=== PATIENT | male | born 1955 | race Caucasian/White ===

== ENCOUNTER 2018-09-14 11:16 | Inpatient (IN) | payer OTHER ==
[~2018-09-14] VITALS: Ht 180.3 cm; Wt 113.7 kg
--- NOTE | ~2018-09-14 | HC ---
[facility] [place] [address] CONSULTATION Name: DON FELIX Room #: 363-P ADM IN M.R.#: [id number] Admission: 09/14/18 Attend Phys: Franklin Hampton MD Discharge: Date of : 59 Report #: [id number] THIS REPORT FOR: //name// CC: Franklin Young TYPE OF REPORT: Inpatient consultation. PRIMARY CARE PHYSICIAN: Patrick Young M.D. HARVESTER OPERATOR: Torres Bradford M.D., F.A.C.C. CHIEF COMPLAINT: Chest pain and upper back pain. HISTORY OF PRESENT ILLNESS: The patient is a 63-year-old man with a history of coronary artery disease who had been working over the last week or so and had noticed with only minimal activity and upper back and scapular pain radiating around to his left arm. These are the exact same symptoms he had 8 years ago when he had his PCI. He has been a little bit more short of breath and according to his , is a little bit graving usually with physical activity. His symptoms in severity are only moderate but they as above were very similar to his previous instances. He denies associated shortness of breath, palpitations, orthopnea or PND. He has still been very active. 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 PAST MEDICAL HISTORY: He has a history of remote PCI in 2010. He had an exercise ECG only stress test a year ago, which was normal. He has borderline diabetes, hyperlipidemia and hypertension. ALLERGIES: He has allergies to OLMESARTAN and SUDAFED. HOME MEDICATIONS: Include amlodipine 10 mg daily, Zyrtec p.r.n., atorvastatin 40 mg, nitroglycerin p.r.n., aspirin and Micardis 80 mg p.o. b.i.d. PAST SURGICAL HISTORY: Prior hernia repair. SOCIAL HISTORY: He is . He used to smoke. REVIEW OF SYSTEMS: PULMONARY: No wheezing or cough. GENERAL: No fevers or chills. SKIN: No rashes. [facility] [address] [place] [address] CONSULTATION Name: DON FELIX Room #: 363-P [facility] IN M.R.#: [id number] Admission: 09/14/18 Attend Phys: Franklin Hampton MD Discharge: Date of : 59 Report #: [id number] CARDIOVASCULAR: Minimal chest discomfort. No dyspnea. No orthopnea. No PND. No palpitations. GENITOURINARY: No dysuria or hematuria. PHYSICAL EXAMINATION: VITAL SIGNS: Blood pressure is 139/89, pulse is 78 and O2 sats 96%. GENERAL: This is a pleasant middle-aged male, alert and oriented, no apparent distress. NECK: Supple. No jugular venous distention. CARDIOVASCULAR: Regular. There is no murmur or S3. LUNGS: Clear to auscultation. ABDOMEN: Nontender. EXTREMITIES: There is no peripheral edema. RADIOLOGICAL DATA: Electrocardiogram shows sinus rhythm and normal ST segments. Chest x-ray shows no acute cardiopulmonary abnormality. LABORATORY DATA: Troponin I is 0.06 x 3 sets. Hemoglobin 13.5; white blood count 7.8 and platelet counts are 406,000. Sodium is 140, potassium is 4.2, chloride is 103, BUN is 22 and creatinine is 1.2. NT-pro-BNP 55. IMPRESSION: 1. Unstable angina. This patient has the recent onset of his typical angina type symptoms with physical activity, relieved with rest. His ECG did not show any dynamic abnormalities and he has ruled out for a myocardial infarction, but I feel that his symptoms are typical and therefore I proceed directly with a cardiac catheterization. 2. Hypertension. Continue present medical therapy. 3. Hyperlipidemia. His lipids are pending. His target LDL is under 70. 4. Borderline diabetes. At this point in time, we will proceed with cardiac catheterization revascularization based on findings. By: 0838 [id number] Norman Diaz MD, FACC /nt
[~2018-09-14 11:16] MED LIST: ACETAMINOPHEN325 M1 PO; ALEVE220 MG PO; ASPIRIN EC81 M1 PO; DIOVAN320 MG PO; EFFIENT10 MG PO; LIPITOR20 MG PO; LIPITOR40 MG PO; MICARDIS40 MG PO; NITROSTAT0.4 MG SL
[2018-09-14 11:17] VITALS: BP 159/88
[2018-09-14] MEDS ORDERED: MICARDIS 80 MG80 MG PO (11:31)
[2018-09-14] MEDS ORDERED: AMLODIPINE BESY10 MG PO (11:32)
[2018-09-14] MEDS ORDERED: NORVASC5 MG PO (11:48)
[2018-09-14 11:51] LABS: ABSOLUTE NEUTROPHILS 5.4 thou/uL (1.4-8.2); BASOPHILS 1.1 % (0.0-2.0); EOSINOPHILS 1.5 % (0.0-3.0); HEMATOCRIT 42.3 % (42.0-52.0); HEMOGLOBIN 14.8 gm/dL (14.0-18.0); LYMPHOCYTES 19.7 % (24.0-44.0); MCH 30.8 pg (26.0-34.0); MCV 88.1 fL (80.0-100.0); MONOCYTES 6.9 % (1.0-8.0); PLATELET COUNT 435 thou/uL (150-400); POLYS 70.8 % (36.0-66.0); WBC 7.6 thou/uL (4.0-11.0)
[2018-09-14 12:03] LABS: ANION GAP 7 mmol/L (7-16); BUN 17 mg/dL (7-18); CALCIUM 9.2 mg/dL (8.5-10.1); CHLORIDE 102 mmol/L (98-107); CO2 27 mmol/L (21-32); CREATININE 1.1 mg/dL (0.7-1.3); GLUCOSE 121 mg/dL (74-106); POTASSIUM 4.1 mmol/L (3.5-5.1); SODIUM 136 mmol/L (136-145)
[2018-09-14 12:11] LABS: TROPONIN-I <0.06 ng/mL (<0.06)
[2018-09-14] MEDS ORDERED: ZYRTEC10 M4 PO (13:27)
[2018-09-14 13:38] VITALS: BP 135/78
--- NOTE | 2018-09-14 13:39 | EKG ---
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
[2018-09-14 14:13] VITALS: BP 151/85
[2018-09-14 14:27] VITALS: BP 147/103
[2018-09-14 15:45] VITALS: BP 133/67
--- NOTE | 2018-09-14 16:55 | NUR ---
PATIENT ADMIT TO UNIT FROM ER AT 1430. UP AD DONALD. DENIES CHEST PAIN. C/0 NECK PAIN 10/11. NO N/V. WILL KEEP MONITOR.
[2018-09-14 21:00] VITALS: BP 116/78
[2018-09-15] VITALS (14 sets, daily range): BP systolic 116–139; BP diastolic 64–89
[2018-09-15 04:29] LABS: HEMATOCRIT 40.7 % (42.0-52.0); HEMOGLOBIN 13.5 gm/dL (14.0-18.0); MCH 29.7 pg (26.0-34.0); MCHC 33.2 g/dL (28.0-37.0); MCV 89.6 fL (80.0-100.0); RBC 4.54 mil/uL (4.50-6.00); RDW 12.9 % (10.5-14.5); WBC 7.8 thou/uL (4.0-11.0)
--- NOTE | 2018-09-15 04:50 | NUR ---
Ptient progressing well towards outcome goals. Vital signs and rhythm stable. No chest pain. Troponin x 3 negative. One more pending this morning. Upp adlib within room without difficulty. Slept well.
[2018-09-15 05:23] LABS: CALCIUM 8.8 mg/dL (8.5-10.1); CREATININE 1.2 mg/dL (0.7-1.3); POTASSIUM 4.2 mmol/L (3.5-5.1); TOTAL BILIRUBIN 0.3 mg/dL (<0.1-1.0); TOTAL PROTEIN 6.9 g/dL (6.4-8.2)
[2018-09-15 05:24] LABS: ALBUMIN 3.4 g/dL (3.4-5.0)
[2018-09-15 09:09] LABS: CHOLESTEROL 184 mg/dL (<200); HDL CHOLESTEROL 36 mg/dL (>40); LDL CHOLESTEROL 109 mg/dL (<100); TC:HDL 5.1 Ratio (Not establshd); TRIGLYCERIDE 199 mg/dL (<150); VLDL 40 mg/dL (<40)
--- NOTE | 2018-09-15 09:11 | NUR ---
care of pt assumed this am @ 0700. pt noted to be up walking about in room. denies soa, pain or n/v/d at this time. pt looking forward to seeing the doctors this am.
--- NOTE | 2018-09-15 12:34 | CATHLAB ---
[facility] [address] [place] [address] INVASIVE PROCEDURE REPORT Name: DON FELIX Room #: 201-P ADM IN M.R.#: [id number] Admission: 09/14/18 Attend Phys: Franklin Hampton MD Discharge: Date of : 59 Date of Service: 09/15/18 1234 Report #: [id number] THIS REPORT FOR: //name// APPROVED REPORT Study performed: 09/15/2018 09:17:07 Patient Details Patient Status: In-Patient Room #: 201 The patient is a 63 year-old male Event Personnel Jw Donovan Hot Top Liner, Timothy Palumbo RN RN, Penelope Darling RTR, SEPARATING MACHINE OPERATOR Monitor, Torres Conley Procedures Performed Art Access - R femoral artery* Left Heart Cath w/or w/o Coronaries [id number] [facility], [address] Initial Mod Sed Same Phys/QHP Gr5y [id number] Hemostasis with Manual pressure Indication Dyspnea, Unstable angina , Chest pain Risk Factors Hypercholesterolemia, Coronary Artery DiseaseHypertension Procedure Narrative The Right Groin^ was infiltrated with 1% Lidocaine subcutaneous anesthesia. A PINNACLE 4FR Sheath #[id number] sheath was inserted into the RFA^. Coronary angiography was performed using coronary diagnostic catheters. The right coronary system was accessed and visualized with a 4FR JR 4 #[id number] catheter. The left coronary system was accessed and visualized with a 4FR JL4 #[id number] catheter. The left ventricle was accessed and visualized with a 4FR PIGTAIL 145 ANGLED #[id number] catheter. Left ventricular/Aortic Valve gradient assessed via catheter pullback. Left ventriculogram was performed in 30 degree projection. Hemostasis was obtained with manual pressure following sheath removal without any complications. The patient tolerated the procedure well and there were no complications associated with the procedure. There was no hematoma. Intraoperative Conscious Sedation Sedation start time: 09:20 Case end Time: 09:50 Fentanyl 50 mcg [address] [facility] [address] [place] [address] INVASIVE PROCEDURE REPORT Name: DON FELIX Room #: 201-P [facility] IN M.R.#: [id number] Admission: 09/14/18 Attend Phys: Franklin Hampton MD Discharge: Date of : 59 Date of Service: 09/15/18 1234 Report #: [id number] Fluoro Time: 2.19 minutes Dose: DAP 5300.80 cGycm2 719 mGy Contrast Type and Amount: Omnipaque 120 ml Coronary Angiography The patient's coronary anatomy is right dominant. Diagnostic Cath Left Main This is a large caliber vessel with a severe stenosis at the distal segment, at the bifurcation of the left circumflex artery and LAD. Approximately 80% stenotic. LAD There are calcifications in proximal and mid segments. There is mild diffuse disease in the mid segment, 30%. The LAD traverses the anterior wall and wraps around the apex. Diagonal 1 This is a patent vessel, with mild disease proximally. Circumflex There is an ostial stenosis, 70%. OM1 This is a moderate size caliber vessel, traveling down the lateral wall, supplying several branches. There are no flow-limiting lesions in the OM vessel. Right Coronary This is a dominant vessel with a patent stent in the midsegment, with mild restenosis, 30%. R PDA This is a patent vessel, with no flow-limiting lesions. RPLV This is a patent vessel, with no flow-limiting lesions. Left Ventriculography The left ventricle is normal in size with normal contractility. The left ventricular ejection fraction is estimated to be 60%. Hemodynamics The aortic pressure is 124/63 mmHg with a mean of 90 mmHg. The left ventricular pressure is 141/2 mmHg with a mean of mmHg. The left ventricular end diastolic pressure is 21 mmHg. Conclusion 1. Severe complex stenosis at the distal left main site, 80%. 2. Severe ostial left circumflex stenosis. 3. Patent RCA stent with mild restenosis. [facility] [address] [place] [address] INVASIVE PROCEDURE REPORT Name: DON FELIX Room #: 201-P [facility] IN M.R.#: [id number] Admission: 09/14/18 Attend Phys: Franklin Hampton MD Discharge: Date of : 59 Date of Service: 09/15/18 1234 Report #: [id number] 4. Normal LV systolic function. 5. Recommend CV surgical consultation. <ELECTRONICALLY SIGNED> By: Jw Donovan MD 09/15/18 1234 1234 1234 Jw Donovan MD /INF
[2018-09-15 13:18] LABS: APTT 28.1 Seconds (24.5-32.8); PROTIME 10.8 Seconds (9.3-11.4)
[2018-09-15 13:37] LABS: URINE BILIRUBIN NEGATIVE (Negative); URINE BLOOD NEGATIVE (Negative); URINE CLARITY CLEAR; URINE COLOR YELLOW; URINE GLUCOSE-RANDOM* NEGATIVE (Negative); URINE KETONES NEGATIVE (Negative); URINE LEUKOCYTES-REFLEX NEGATIVE (Negative); URINE NITRITE-REFLEX NEGATIVE (Negative); URINE PROTEIN (DIPSTICK) NEGATIVE (Negative); URINE SPECIFIC GRAVITY <= 1.005 (1.005-1.035); URINE UROBILINOGEN 0.2 E.U./dl (0.2-1.0)
--- NOTE | 2018-09-15 13:53 | NUR ---
PT ARRIVED TO UNIT AT APPROX 1005 FROM DIRECTOR HOSPICE OPERATIONS WITH BELONGINGS AND . PT AOX4, VSS, RIGHT GROIN SITE CDI, NO HEMATOMA, TELE STRIP PRINTED AND DOCUMENTED. NO C/O PAIN. WILL ACKNOWLEDGE AND IMPLEMENT ORDERS.
--- NOTE | 2018-09-15 14:14 | 2DMMODE ---
[facility] [address] [place] [address] 2 D/M-MODE ECHOCARDIOGRAM Name: DON FELIX Room #: 201-P ADM IN M.R.#: [id number] Admission: 09/14/18 Attend Phys: Franklin Hampton MD Discharge: Date of : 59 Date of Service: 09/15/18 1414 Report #: [id number] THIS REPORT FOR: //name// APPROVED REPORT Study performed: 09/15/2018 13:20:32 EXAM: Comprehensive 2D, Doppler, and color-flow Echocardiogram Patient Location: Bedside Room #: 201 Status: routine BSA: 2.33 HR: 62 bpm BP: 127/71 mmHg Rhythm: NSR Other Information Study Quality: Adequate Indications CAD Chest Pain Preop CABG 2D Dimensions RVDd: 42.24 mm IVSd: 11.28 (7-11mm) LVOT Diam: 24.54 (18-24mm) LVDd: 48.94 mm PWd: 10.83 (7-11mm) Ascending Ao: 31.01 (22-36mm) LVDs: 32.59 (25-40mm) Aortic Root: 30.87 mm IVC: 21.00 mm Volumes Left Atrial Volume (Systole) Single Plane 4CH: 48.10 mL Single Plane 2CH: 50.93 mL LA ESV Index: 24.00 mL/m2 Aortic Valve AoV Peak Marco.: 1.47 m/s AO Peak Gr.: 8.59 mmHg LVOT Max P.50 mmHg LVOT Max V: 0.94 m/s KLAUDIA Vmax: 3.02 cm2 Mitral Valve E/A Ratio: 0.7 [facility] [address] [place] [address] 2 D/M-MODE ECHOCARDIOGRAM Name: DON FELIX Room #: 201-P [facility] IN M.R.#: [id number] Admission: 09/14/18 Attend Phys: Franklin Hampton MD Discharge: Date of : 59 Date of Service: 09/15/18 1414 Report #: [id number] MV Decel. Time: 286.48 ms MV E Max Marco.: 0.57 m/s MV A Marco.: 0.77 m/s MV PHT: 83.08 ms IVRT: 110.73 ms Pulmonary Valve PV Peak Marco.: 1.19 m/s PV Peak Gr.: 5.66 mmHg Pulmonary Vein P Vein S: 0.51 m/s P Vein A: 0.30 m/s P Vein D: 0.33 m/s P Vein A Dur.: 106.1 msec P Vein S/D Ratio: 1.55 Tricuspid Valve TR Peak Marco.: 2.25 m/s TR Peak Gr.: 20.29 mmHg PA Pressure: 30.00 mmHg Left Ventricle The left ventricle is normal size. There is normal LV segmental wall motion. There is normal left ventricular wall thickness. Left ventricular systolic function is normal. The left ventricular ejection fraction is within the normal range. LVEF is 55-60%. Grade I - abnormal relaxation pattern. Right Ventricle The right ventricle is normal size. The right ventricular systolic function is normal. Atria The left atrium size is normal. The right atrium size is normal. Aortic Valve The aortic valve is normal in structure. No aortic regurgitation is present. There is no aortic valvular stenosis. Mitral Valve The mitral valve is normal in structure. There is no mitral valve regurgitation noted. No evidence of mitral valve stenosis. Tricuspid Valve The tricuspid valve is normal in structure. There is trace tricuspid regurgitation. Estimated PAP 30 mmHg. There is no pulmonary hypertension. [address] [address] 2 D/M-MODE ECHOCARDIOGRAM Name: DON FELIX Room #: 201-P [facility] IN M.R.#: [id number] Admission: 09/14/18 Attend Phys: Franklin Hampton MD Discharge: Date of : 59 Date of Service: 09/15/18 1414 Report #: [id number] Pulmonic Valve The pulmonary valve is normal in structure. There is no pulmonic valvular regurgitation. Great Vessels The aortic root is normal in size. IVC is dilated and collapses >50% with inspiration. Pericardium There is no pericardial effusion. <Conclusion> LVEF is 55-60%. Grade I - abnormal relaxation pattern. There is no aortic valvular stenosis. No aortic regurgitation is present. No evidence of mitral valve stenosis. There is no mitral valve regurgitation noted. <ELECTRONICALLY SIGNED> By: Norman Diaz MD, FACC 09/15/18 1414 141 141 Norman Diaz MD, FACC /INF
--- NOTE | 2018-09-15 17:07 | NUR ---
PT AOX4, VSS, NO C/O PAIN, NO S/SX OF CARDIAC OR RESP DISTRESS. DENIES CHEST PAIN. MEDS GIVEN PER MAR. SPOUSE AT BEDSIDE WITH PT. POST CATH VITALS CHARTED, RIGHT GROIN SITE CDI, NO HEMATOMA. PT OFF BEDREST SINCE APROX 1300, TOLERATING WELL. PLAN IS FOR CABG IN AM, PT AND FAMILY UPDATED AND INFORMED, COMMUNICATES UNDERSTANDING. WILL CONTINUE TO MONITOR AND FOLLOW POC.
[2018-09-15 23:10] LABS: GLYCOHEMOGLOBIN (HGB A1C) 6.2 % (4.8-5.6)
[2018-09-16] VITALS (24 sets, daily range): BP systolic 92–147; BP diastolic 47–79
[2018-09-16 04:11] LABS: CREATININE 1.2 mg/dL (0.7-1.3); POTASSIUM 4.1 mmol/L (3.5-5.1)
--- NOTE | 2018-09-16 05:22 | NUR ---
ASSUME CARE 1900. PT/VITALS STABLE. DENIES ANY PAIN. UP AD DONALD. SR ON MONITOR. ASSESSMENT CHARTED. PROGRESSING WELL WITH POC. PLAN IS CABG TODAY. WILL CONTINUE TO MONITOR AND FOLLOW WITH POC
[2018-09-16 05:49] LABS: HEMOGLOBIN 13.8 gm/dL (14.0-18.0); MCHC 33.7 g/dL (28.0-37.0); MCV 89.3 fL (80.0-100.0); RBC 4.59 mil/uL (4.50-6.00); RDW 13.2 % (10.5-14.5); WBC 8.6 thou/uL (4.0-11.0)
[2018-09-16 14:13] LABS: POC BE -1 mmol/L (-2.0 to +3.0); POC CA IONIZED 4.5 mg/dL (4.5-5.3); POC GLUCOSE 198 mg/dL (70-99); POC HCO3 24.9 mmol/L (22.0-26.0); POC HEMOGLOBIN 13.3 g/dL (14.0-18.0); POC POTASSIUM 4.3 mmol/L (3.5-5.1); POC SODIUM 136 mmol/L (136-145); POC pCO2 47.7 mmHg (35.0-45.0); POC pH 7.326 (7.360-7.450)
[2018-09-16 14:13] LABS: POC BE -2 mmol/L (-2.0 to +3.0); POC CA IONIZED 3.9 mg/dL (4.5-5.3); POC GLUCOSE 224 mg/dL (70-99); POC HCO3 24.1 mmol/L (22.0-26.0); POC HEMOGLOBIN 11.2 g/dL (14.0-18.0); POC POTASSIUM 4.5 mmol/L (3.5-5.1); POC SODIUM 134 mmol/L (136-145); POC pCO2 45.1 mmHg (35.0-45.0); POC pH 7.335 (7.360-7.450)
[2018-09-16 14:13] LABS: POC BE 2 mmol/L (-2.0 to +3.0); POC CA IONIZED 4.7 mg/dL (4.5-5.3); POC GLUCOSE 129 mg/dL (70-99); POC HCO3 27.1 mmol/L (22.0-26.0); POC HEMOGLOBIN 13.6 g/dL (14.0-18.0); POC POTASSIUM 4.5 mmol/L (3.5-5.1); POC SODIUM 138 mmol/L (136-145); POC pCO2 46.7 mmHg (35.0-45.0); POC pH 7.372 (7.360-7.450)
[2018-09-16 14:14] LABS: POC BE -3 mmol/L (-2.0 to +3.0); POC CA IONIZED 4.1 mg/dL (4.5-5.3); POC GLUCOSE 275 mg/dL (70-99); POC HEMOGLOBIN 11.2 g/dL (14.0-18.0); POC POTASSIUM 4.7 mmol/L (3.5-5.1); POC SODIUM 133 mmol/L (136-145); POC pCO2 45.4 mmHg (35.0-45.0); POC pH 7.313 (7.360-7.450)
[2018-09-16 14:14] LABS: POC BE -4 mmol/L (-2.0 to +3.0); POC GLUCOSE 267 mg/dL (70-99); POC HCO3 22.8 mmol/L (22.0-26.0); POC HEMOGLOBIN 11.2 g/dL (14.0-18.0); POC POTASSIUM 3.7 mmol/L (3.5-5.1); POC SODIUM 135 mmol/L (136-145); POC pCO2 48.2 mmHg (35.0-45.0); POC pH 7.283 (7.360-7.450)
--- NOTE | 2018-09-16 14:40 | NUR ---
PT ARRIVED FROM OR WITH ANES. AND OTHER OR PERSONELS AT APPROXIMATELY 1410. DR. DE LA TORRE AND CHIDI BENITO WERE AT THE BEDSIDE SOON AFTER ARRIVAL. PT SEDATED AND PLACED ON THE VENT, VENT ORDERS COMMUNICATED TO RT, PRIOR TO PT ARRIVAL. ON PROPOFOL AT 40 MCGS ON ARRIVAL. PACEMAKER WIRES IN PLACE, PACEMAKE ATTACH BUT TURN OFF. SATS ABOVE 90% ON VENT. CHEST TUBES, INPLACE AND DRAINING, CONNECTED TO SUCTION. ON ARRIVAL, PT WAS ON INSULIN GTT AT 6 UNITS/HR ON ARRIVAL. DR. TALAVERA ADVANCED SWAN CATH PER DR. DE LA TORRE'S ORDERS. ALL HEMODYNAMIC MONITORS ARE WITHIN NORMAL LIMITS AT THIS TIME. WILL CONTINUE TO MONITOR PT.
[2018-09-16 14:46] LABS: HEMATOCRIT 37.6 % (42.0-52.0); HEMOGLOBIN 12.5 gm/dL (14.0-18.0); MCH 29.6 pg (26.0-34.0); MCHC 33.2 g/dL (28.0-37.0); MCV 89.2 fL (80.0-100.0); RBC 4.21 mil/uL (4.50-6.00)
[2018-09-16 14:51] LABS: CALCIUM 8.8 mg/dL (8.5-10.1); CREATININE 1.6 mg/dL (0.7-1.3); POTASSIUM 4.1 mmol/L (3.5-5.1); WBC 29.1 thou/uL (4.0-11.0)
[2018-09-16 14:52] LABS: BE(vivo) -8.8 mmol/L (-2 to +3); HCO3 19.5 mmol/L (22.0-26.0); PCO2 51.6 mmHg (35.0-45.0); PO2 126.1 mmHg (80.0-100.0); pH 7.195 (7.360-7.450); sO2 97.7 % (92.0-98.0)
[2018-09-16 15:05] LABS: APTT 25.3 Seconds (24.5-32.8); INR 1.1; PROTIME 11.8 Seconds (9.3-11.4)
[2018-09-16 15:08] LABS: BE(vivo) -8.9 mmol/L (-2 to +3); HCO3 19.8 mmol/L (22.0-26.0); PCO2 VENOUS 54.8 mmHg (41.0-51.0); PO2 VENOUS 54.2 mmHg (35.0-45.0)
--- NOTE | 2018-09-16 15:30 | HC ---
[facility] [place] [address] CONSULTATION Name: DON FELIX Room #: 242-P [facility] IN M.R.#: [id number] Admission: 09/14/18 Attend Phys: Franklin Hampton MD Discharge: Date of : 59 Report #: [id number] THIS REPORT FOR: //name// CC: Franklin Young DATE OF SERVICE: 09/15/2018 HISTORY OF PRESENT ILLNESS: We were asked to see the patient in evaluation of coronary artery disease. The patient was admitted with intermittent chest pain of new onset. The patient has a history of cardiac stent placement approximately 8 years ago and says that the symptoms are similar. Symptoms consist of intermittent posterior neck and back pain, shortness of breath, nausea and vomiting with onset approximately 4 days prior to yesterday's admission. reports that the patient looks anders after any period of exertion. The patient states that symptoms are severely increased after shoveling snow. There is a history of previous stent placement in the right coronary artery 04/11. PAST MEDICAL HISTORY: Includes hypertension, hypercholesterolemia, arthritis and back problems. MEDICATIONS AT HOME: Amlodipine, atorvastatin, aspirin, Micardis. ALLERGIES: PSEUDOEPHEDRINE, causes hypertension. FAMILY HISTORY: Positive for coronary disease in mother who had bypass surgery. REVIEW OF SYSTEMS: CONSTITUTIONAL: Negative for fever or chills. EYES: Negative for eye pain or visual change. HEENT: Negative for rhinorrhea or sore throat. RESPIRATORY: Negative for cough or sputum production. We do note some shortness of breath with angina. CARDIOVASCULAR: As mentioned pain in the upper chest, back area, upper thorax posteriorly. GASTROINTESTINAL: Some nausea with the angina, but no vomiting or blood. GENITOURINARY: No burning, frequency, or blood. MUSCULOSKELETAL: Some chronic back discomfort, but no other bone or joint symptoms. SKIN: No rash or infection. NEUROLOGIC: No motor or sensory dysfunction. PHYSICAL EXAMINATION: [facility] [address] [place] [address] CONSULTATION Name: DON FELIX Room #: 242-P [facility] IN ..#: [id number] Admission: 09/14/18 Attend Phys: Franklin Hampton MD Discharge: Date of : 59 Report #: [id number] VITAL SIGNS: Temperature 97.4, heart rate 78, respiratory rate 16, blood pressure 139/89, O2 sat 96% on room air. HEENT: No scleral icterus, no arcus. NECK: No mass, no bruit. CHEST: Clear. HEART: Rhythm regular. ABDOMEN: Soft. EXTREMITIES: No clubbing, cyanosis or edema. MUSCULOSKELETAL: No bone or joint dissymmetry or deformation. NEUROLOGIC: No motor or sensory loss or dysfunction. SKIN: No rash or infection. We note cardiac catheterization done today by Dr. Donovan for Dr. Bradford, shows critical left main stenosis. I have discussed the risks and details of bypass surgery. These include but are not limited to bleeding, infection, anesthesia risks, heart problems, stroke and . Options and alternatives were reviewed. The patient and family understand all this and wished to proceed. We plan surgery for tomorrow morning. Thank you for the consult. <ELECTRONICALLY SIGNED> By: Gene Garrett MD 09/16/18 1530 1600 1837 Gene Garrett MD /nt
--- NOTE | 2018-09-16 17:02 | EKG ---
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 WALDRON : 1955 Requested By: Gene Garrett Order Number: [id number] MD: John Beltran Measurements Intervals [place] Rate: 90 P: 52 CA: 221 QRS: 33 QRSD: 88 T: 23 QT: 404 QTc: 495 Interpretive Statements Sinus rhythm Prolonged CA interval Borderline prolonged QT interval Compared to ECG 09/14/2018 11:36:19 First degree AV block now present Electronically Signed On 09-16-2018 17:01:44 COMFORT STATION ATTENDANT by John Beltran [email or web address] <ELECTRONICALLY SIGNED> By: John Beltran MD, [facility] 09/16/18 1701 1619 161 John Beltran MD, FACC /EPI
[2018-09-16 17:30] LABS: BE(vivo) -8.6 mmol/L (-2 to +3); HCO3 17.1 mmol/L (22.0-26.0); PCO2 36.3 mmHg (35.0-45.0); PO2 92.9 mmHg (80.0-100.0); pH 7.291 (7.360-7.450); sO2 96.4 % (92.0-98.0)
[2018-09-16 19:12] LABS: BE(vivo) -7.1 mmol/L (-2 to +3); HCO3 18.4 mmol/L (22.0-26.0); PCO2 36.8 mmHg (35.0-45.0); PO2 110.3 mmHg (80.0-100.0); sO2 97.7 % (92.0-98.0)
[2018-09-16 19:13] LABS: pH 7.316 (7.360-7.450)
[2018-09-16 19:45] LABS: CALCIUM 8.7 mg/dL (8.5-10.1); MAGNESIUM 2.5 mg/dL (1.8-2.4); POTASSIUM 4.1 mmol/L (3.5-5.1)
--- NOTE | 2018-09-16 19:58 | NUR ---
PT CURRENTLY AO, FOLLOW COMMANDS, ON LIGHT SEDATION. PRECEDEX AT 0.4 MCGS. C/O MINIMAL PAIN. LEVOPHED STARTED AT APPROXIMATE 1830, FOR BP SUPPORT. SR ON MONITOR. CPAP TRIAL PERFORMED ON PATIENT, AWAIT ABGS. INSULIN GTT ONGOING AT 4 UNITS/HR. CHEST TUBES PATENT, AND OUTPUT NOTED HOURLY. HEMODYNAMICALLY BEING MONITOR CURRENTLY. URINE OUTPUT NOTED. NO COMPLAINS PRESENTLY. WILL CONTINUE TO MONITOR PT.
[2018-09-16 20:02] LABS: BE(vivo) -8.7 mmol/L (-2 to +3); HCO3 16.2 mmol/L (22.0-26.0); PCO2 31.7 mmHg (35.0-45.0); PO2 91.5 mmHg (80.0-100.0); pH 7.325 (7.360-7.450); sO2 96.6 % (92.0-98.0)
[2018-09-16 22:19] LABS: HCO3 20.8 mmol/L (22.0-26.0); PCO2 36.9 mmHg (35.0-45.0); PO2 79.8 mmHg (80.0-100.0); pH 7.368 (7.360-7.450); sO2 95.5 % (92.0-98.0)
--- NOTE | 2018-09-16 23:53 | NUR ---
PT AOX4 AT THIS MOMENT. FOLLOWS COMMANDS. MOVES ALL EXTREMETIES. C/O PAIN, FENTANYL GIVEN FOR PAIN MANAGEMENT.OFF LEVOPHED, BP STABLE. ON INSULIN, TITRATED PER BS. CHEST TUBES IN PLACE, AND DRAINING. PT CURRENTLY BEING HEMODYNAMICALLY BEING MONITORED. MIDSTERNAL DRESSING C/D/I. LEFT LEG DRESSING C/D/I. PACER WIRES IN PLACE. WILL CONTINUE TO MONITOR.
[2018-09-17 04:11] VITALS: BP 135/71
[2018-09-17 04:58] LABS: ABSOLUTE NEUTROPHILS 13.6 thou/uL (1.4-8.2); BASOPHILS 0.2 % (0.0-2.0); HEMATOCRIT 33.1 % (42.0-52.0); LYMPHOCYTES 4.3 % (24.0-44.0); MCH 29.7 pg (26.0-34.0); MCHC 33.4 g/dL (28.0-37.0); MONOCYTES 9.4 % (1.0-8.0); POLYS 86.1 % (36.0-66.0); RBC 3.72 mil/uL (4.50-6.00); RDW 13.4 % (10.5-14.5); WBC 15.8 thou/uL (4.0-11.0)
[2018-09-17 05:02] LABS: PLATELET COUNT 291 thou/uL (150-400)
[2018-09-17 05:14] LABS: CALCIUM 8.5 mg/dL (8.5-10.1); CREATININE 1.3 mg/dL (0.7-1.3); MAGNESIUM 2.3 mg/dL (1.8-2.4); POTASSIUM 4.2 mmol/L (3.5-5.1)
--- NOTE | 2018-09-17 06:00 | NUR ---
PT REMAINS STABLE IN THIS SHIFT. CONTINUE TO BE OFF PRESSOR. ALL LINES/CTs ARE INPLACE AND FUNCTION PROPERLY. NO S/SX OF ANY COMPLICATION INDICATES. RHYTHMS STABLE. PAIN HAS BEEN SLIGHTLY BETTER CONTROL THIS AM WITH PO/IV PAIN MEDS. INCREASED MORE O2 THIS AM. CXR OBTAINED, PULMONARY TOILET IN PROGRESS. UP IN CHAIR THIS AM. HE IS BRIAN ACTIVITY WELL. MAKING SOME PROGRESS TOWARD POC.
--- NOTE | 2018-09-17 06:37 | NUR ---
ABP remains elevated, as high as 150's to 160's. Gave Lopressor am dose early.
--- NOTE | 2018-09-17 08:22 | EKG ---
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: JUANI : 1955 Requested By: Gene Garrett Order Number: [id number] MD: John Beltran Measurements Intervals [place] Rate: 83 P: 28 IA: 184 QRS: 23 QRSD: 84 T: 28 QT: 380 QTc: 447 Interpretive Statements Sinus rhythm Minimal diffuse ST elevation, consider postoperative pericarditis Compared to ECG 09/16/2018 16:19:39 Minimal, diffuse ST elevation is now present Electronically Signed On 09-17-2018 8:22:18 MINE FOREMAN by John Beltran [email or web address] <ELECTRONICALLY SIGNED> By: John Beltran MD, [facility] 09/17/18821 9 9 John Beltran MD, [facility] /EPI
--- NOTE | 2018-09-17 09:01 | NUR ---
RD consult received. S/P cabg 09/16. Hx stent 8 yr ago, HTN. Lipids-triglycerides 199, HDL 36, LDL 109. BMI 35. Will follow up for diet education needs once transferred out of ICU.
--- NOTE | 2018-09-17 15:33 | NUR ---
patient admitted with unstable angina and rec Bypass. 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 Reports adequate time off work and they are aware he is here at [facility]. Patient resides with . 4 steps to enter home then all needs on one level. He has support at dc. [employer] following for dc planning.
--- NOTE | 2018-09-17 15:39 | O ---
[facility] [place] [address] OPERATIVE REPORT Name: DON FELIX Room #: 242-P [facility] IN M.R.#: [id number] Admission: 09/14/18 Attend Phys: Franklin Hampton MD Discharge: Date of : 59 Report #: [id number] THIS REPORT FOR: //name// CC: Franklin Young DATE OF SERVICE: 09/16/2018 PREOPERATIVE DIAGNOSIS: Coronary artery disease. POSTOPERATIVE DIAGNOSIS: Coronary artery disease. OPERATION: Coronary artery bypass x 2 including left internal mammary artery to left anterior descending artery and saphenous vein to marginal and endoscopic harvest left greater saphenous vein. SURGEON: Gene Garrett M.D. DIRECTOR OF ASSISTED LIVING: MARELY Nava. ANESTHESIA: General. INDICATIONS: The patient is a 63-year-old with coronary artery disease. The patient has a history of a right coronary artery stent. He presents with some dyspnea and back and neck discomfort. Cardiac catheterization by Dr. Donovan revealed high-grade left main stenosis, the right coronary had trivial disease, left ventricular function satisfactory. FINDINGS AND TECHNIQUE: After general anesthesia was established, saphenous vein was harvested using an endoscopic approach and prepared for use as a conduit. Exposure was obtained through median sternotomy. Left internal mammary artery was harvested from chest wall. Pericardial well was made. Cannulation sutures were placed. Heparin was given. Aorta was cannulated. Right atrium was cannulated. Cardioplegia needle was positioned in the aortic root. Retrograde cardioplegic catheter was placed in the coronary sinus. Cardiopulmonary bypass was established. The aorta was cross clamped. Antegrade and retrograde cardioplegia were given. Ice was poured into the pericardial well. The heart was stopped. During electromechanical arrest, the distal anastomoses were performed and end-to-side anastomosis was made between vein and the marginal artery. This was a 2-mm vessel. Cold cardioplegia was given. The left internal mammary artery was sewn in end-to-side fashion to left anterior descending artery. This was a 1.5 mm vessel. The anastomosis was checked with the temperature technique. [facility] [address] [place] [address] OPERATIVE REPORT Name: DON FELIX Room #: 242-P [facility] IN M.R.#: [id number] Admission: 09/14/18 Attend Phys: Franklin Hampton MD Discharge: Date of : 59 Report #: [id number] Cold cardioplegia was given. One proximal anastomosis was performed. When this was complete, warm retrograde cardioplegia was given followed by warm continuous blood to the coronary sinus. When this infusion was complete, the crossclamp was removed. Flow was established through the graft. De-airing maneuvers were performed. The anastomoses were inspected and found to be satisfactory. As the patient warmed, nice cardiac activity resumed, chest tubes and pacing wires were placed, a marker was placed around the proximal anastomosis. When the patient was warmed, he was weaned from cardiopulmonary bypass. Venous cannula was removed. Protamine was given, the aortic cannula was removed. Flows were measured in the bypass grafts. When hemostasis was satisfactory, the chest was closed in the usual fashion. The patient was taken to the Intensive Care Unit in good condition having tolerated the procedure well. All counts were reported as correct. <ELECTRONICALLY SIGNED> By: Gene Garrett MD 09/17/18 1539 1605 1619 Gene Garrett MD /nt
--- NOTE | 2018-09-17 18:23 | NUR ---
ASSUMED CARE OF PATIENT AT 1130, PATIENT SITTING IN THE CHAIR MOST OF THE MORNNING AND THEN LATER THIS AFTERNOON. VITALS STABLE, HAS BEEN MEDICATED WITH PRN PAIN MEDS. TOLERATING DIET WELL W/O NAUSEA. CHEST TUBES NOTED DOCUMENTED, A-LINE RT. RADIAL, PACER WIRES CAPPED. ENCOURAGED TO COUGH AND DEEP BREATH AND COUGH AND USE OF I.S. PROGRESSING TOWARDS POC GOALS.
[2018-09-17 19:48] LABS: BE(vivo) -3.8 mmol/L (-2 to +3); HCO3 20.7 mmol/L (22.0-26.0); PCO2 35.7 mmHg (35.0-45.0); PO2 55.8 mmHg (80.0-100.0); pH 7.382 (7.360-7.450); sO2 88.9 % (92.0-98.0)
[2018-09-17 21:28] VITALS: BP 139/73
--- NOTE | 2018-09-17 23:00 | NUR ---
AOX4. ON 8L HF. MEDIASTENAL CHEST TUBES REMOVED. PT UNABLE TO KEEPS SATS ABOVE 90%. PLACED ON NONREBREATHER 15L DURING THE NIGHT TO HELP WITH OXYGENATION. ABG TAKEN X2. CHEST XRAY DONE. RESULTS COMMUNICATED TO DR. ATKINSON. RT WORKED WITH PATIENT ON IS AND DEEP BREATHING EXERCISES. SATS UP ABOVE 90% ON NONREBREATHER, WILL CONTINUE TO MONITOR.
[2018-09-17 23:30] LABS: BE(vivo) -4.6 mmol/L (-2 to +3); HCO3 19.4 mmol/L (22.0-26.0); PCO2 32.1 mmHg (35.0-45.0); pH 7.399 (7.360-7.450); sO2 92.7 % (92.0-98.0)
[2018-09-18 05:39] LABS: ABSOLUTE NEUTROPHILS 14.9 thou/uL (1.4-8.2); BASOPHILS 0.2 % (0.0-2.0); HEMATOCRIT 29.7 % (42.0-52.0); HEMOGLOBIN 10.4 gm/dL (14.0-18.0); LYMPHOCYTES 5.8 % (24.0-44.0); MCH 30.8 pg (26.0-34.0); MCHC 34.9 g/dL (28.0-37.0); MCV 88.3 fL (80.0-100.0); MONOCYTES 10.9 % (1.0-8.0); PLATELET COUNT 256 thou/uL (150-400); POLYS 83.1 % (36.0-66.0); RBC 3.36 mil/uL (4.50-6.00); RDW 13.5 % (10.5-14.5)
[2018-09-18 05:50] LABS: CALCIUM 8.4 mg/dL (8.5-10.1); CREATININE 1.4 mg/dL (0.7-1.3); POTASSIUM 4.3 mmol/L (3.5-5.1)
--- NOTE | 2018-09-18 06:44 | NUR ---
PT AOX4. MEDICATED FOR PAIN APPROPIATELY. ON 15L HIGH FLOW AND 50% VENTIMASK, SATS ABOVE 90%. NO APPARENT DISTRESS CURRENTLY. PLUERAL CHEST TUBED IN PLACE, OUTPUT NOTED. WAS ON CARDENE GTT FOR BP CONTROL, STOP DURING THE NIGHT AT APPROXIMATELY 0130 AM. PT UP TO THE CHAIR AT 0130 AM WITH MOD ASSIST. AFEBRILE. VSS CURRENTLY. MIDSTERNAL DRESSING C/D/I. PACER WIRES PROTECTED. NO COMPLAINS CURRENTLY. WILL CONTINUE TO MONITOR PATIENT.
[2018-09-18 08:12] LABS: BE(vivo) -1.1 mmol/L (-2 to +3); PCO2 36.4 mmHg (35.0-45.0); PO2 61.2 mmHg (80.0-100.0); pH 7.419 (7.360-7.450); sO2 92.1 % (92.0-98.0)
--- NOTE | 2018-09-18 10:49 | NUR ---
PATIENT AWAKE AND ALERT THIS MORNING. PATIENT UP TO CHAIR WITH PHYSICAL THERAPY, AND TOLERATED WELL. PATIENT'S O2 DID DECREASE INTO THE MID 80'S WITH MOVEMENT HOWEVER PATIENT RECOVERED FAIRLY QUICKLY. PATIENT IS ON 15L HIFLO NC AND 50% FACES[place]ELD. SATS ARE IMPROVING NOW THAT THE PATIENT HAS BEEN UP MOVING AROUND. C/O PAIN AND PAIN MEDICATIONS GIVEN AND DID HELP. PATIENT IS RESTING QUIETLY AT THIS TIME WITH EYES CLOSED IN CHAIR. FAMILY AT BEDSIDE. NO OTHER CONCERNS AT THIS TIME. WILL CONTINUE TO MONITOR AND CARE PER PLAN OF CARE.
[2018-09-18 13:44] VITALS: BP 86/43
[2018-09-18 20:08] LABS: GLYCOHEMOGLOBIN (HGB A1C) 6.2 % (4.8-5.6)
[2018-09-19] VITALS (23 sets, daily range): BP systolic 81–134; BP diastolic 35–66
--- NOTE | 2018-09-19 04:20 | NUR ---
PT PROGRESSING BETTER DURING NOC SHIFT WITH SOME IMPROVEMENT. ASSESSMENT CHARTED. PAIN IS CONTROLLED WITH PO PAIN MEDICATION. PT IS SATING IN AROUND 94% ON HIGH FLOW NC @ 10L. DURING NOC SHIFT, PT WANTED TO MOVE FROM BED TO CHAIR FOR REPOSITIONING. HIS BLOOD PRESSURES WAS IN THE 70/80S SYS WITH MAPS BETWEEN 55-65. ONCE RETURING BACK TO BED DID HIS BP INCREASED AND MAP WAS ABOVE 60S CONSISTENTLY. INCISION SITES WERE DRY AND INTACT WITH DRESSING WITH NO OVERSATURATION. PT FEELS THAT HE IS IMPROVING AND DOING BETTER. CALL LIGHT IN REACH. CONTINUE WITH PLAN OF CARE.
--- NOTE | 2018-09-19 18:14 | NUR ---
ASSESSMENTS DOCUMENTED. VSS. PRN PAIN MEDICATION GIVEN X2 FOR STERNAL DISCOMFORT. PT AMBULATED AROUND UNIT X2 TODAY. BATHED WITH OT. ON 9 L OXYGEN PER NC. UTILIZING IS FREQUENTLY. ENCOURAGED TO COUGH AND DEEP BREATHE. D/C'D ACCUCHECKS. D/C'D ART LINE. VOIDING IN ADEQUATE AMOUNTS. PASSING GAS. UP TO CHAIR FOR ALL MEALS. BATHED WITH OT. PROGRESSING TOWARDS GOALS. WILL CONTINUE TO MONITOR.
[2018-09-20] VITALS (19 sets, daily range): BP systolic 100–125; BP diastolic 45–63
--- NOTE | 2018-09-20 05:18 | NUR ---
ASSUMED PT CARE AT 1900 WITH REPORT TAKEN. NO SIGN OF DISTRESS NOTED IN PT. PT IS ALERT AND ORIENTED. NO FMILY AT BEDSIDE, SCHEDULED MED ADMINISTERED TO PT. VITAL SIGNS STABLE, PT IS STABLE, DENIES ANY PAIN AT THIS TIME. PT IS NSR ON THE MONITOR. FAMILY NOW AT BEDSIDE. PT IS STABLE TRHROUGHOUT THE NIGHT. RIGHT INTERNAL JUGULAR DISCONTINUED PER DOCTOR'S REQUEST. PT TOLERATED. NO FURTHER NEEDS AT THIS TIME. CONTINUE NURSING POINT OF CARE.
--- NOTE | 2018-09-20 08:33 | NUR ---
care of pt assumed this am @ ~0700. pt sitting at the side of the bed talking w/ staff. pt calm, relaxed and comfortable, until he says the begins to cough then his chest (where his incision is) begins to hurt, but states once the coughing is over the discomfort subsides. pt noted to be using the heart pillow to chest to splint when coughing. pt has a productive cough. pt denies any n/v/d. pt states it has been many days since a bm, request prune juice this am. pt aware of potential tx to ccu today. pt verbalized his frustration in his inability to get/give his a birthday gift yesterday due to his condition.
--- NOTE | 2018-09-20 23:51 | NUR ---
GCS 15. A&O X4. FC, ZHU. CALM AND PLEASANT DEMEANOR. EAGER TO TRANSFER OUT OF ICU. REPORTS PAIN WHEN COUGHING. SINUS RHYTHM ON MONITOR. PT BECOMES TACHYCARDIC DURING PROLONGED EXERTION. O2 SAT > 92% ON 3L PER HIGH FLOW NC. TOLERATING HEART HEALTHY DIET. VOIDS PER URINAL. ADEQUATE URINE OUTPUT. AMBULATES WITH STANDBY ASSIST. STEADY GAIT. VITAL SIGNS AND ASSESSMENTS DOCUMENTED. WILL CONTINUE TO MONITOR.
--- NOTE | 2018-09-21 02:12 | NUR ---
PT TRANSFERRED FROM ICU.S/P CABG.PT REQUESTED SHOWER UPON ARRIVAL TO UNIT.ASSISTED W/SHOWER,TOLERATED.ON O2 AT 2LITERS PNC,SATS ADEQUATE.INCISIONS SITES TO MIDSTERNUM AND LEFT HARVEST SITE,INTACT.DRESSINGS REAPPLIED.PAIN MEDS GIVEN FOR CHEST PAIN WITH RELIEF.PT DENIES ANY OTHER NEEDS AT THIS TIME.WILL CONT TO MONITOR PER POC.
[2018-09-21 04:09] LABS: HEMATOCRIT 26.7 % (42.0-52.0); HEMOGLOBIN 9.4 gm/dL (14.0-18.0); MCH 31.6 pg (26.0-34.0); MCHC 35.4 g/dL (28.0-37.0); MCV 89.4 fL (80.0-100.0); RBC 2.99 mil/uL (4.50-6.00); RDW 13.5 % (10.5-14.5); WBC 10.5 thou/uL (4.0-11.0)
[2018-09-21 04:37] LABS: CALCIUM 8.3 mg/dL (8.5-10.1); CREATININE 1.4 mg/dL (0.7-1.3); POTASSIUM 4.8 mmol/L (3.5-5.1)
[2018-09-21 05:50] VITALS: BP 129/65
[2018-09-21 07:50] VITALS: BP 109/60
--- NOTE | 2018-09-21 09:24 | EKG ---
[address] [place] [address] ELECTROCARDIOGRAM REPORT Name: DON FELIX Room #: 206-P ADM IN M.R.#: [id number] Admission: 09/14/18 Attend Phys: Franklin Hampton MD Discharge: Date of : 59 Report #: [id number] THIS REPORT FOR: //name// [facility] Test Date: 2018-09-21 Test Time: 07:32:38 Pat Name: DNO FELIX Department: Room: 206 Gender: M Otolaryngology Surgeon: JUANI : 1955 Requested By: Gene Garrett Order Number: [id number] MD: John Bletran Measurements Intervals [place] Rate: 72 P: 63 VT: 205 QRS: 32 QRSD: 97 T: 35 QT: 413 QTc: 453 Interpretive Statements Sinus rhythm Poor R wave progression Compared to ECG 09/17/2018 07:20:35 ST segment elevation is less prominent poor R wave progression is noted Electronically Signed On 09-21-2018 9:24:05 BIOSTATISTICS DIRECTOR by John Beltran [email or web address] <ELECTRONICALLY SIGNED> By: John Beltran MD, [facility] 09/21/18 0924 D: [id number] 1 John Beltran MD, FACC /EPI
--- NOTE | 2018-09-21 09:30 | NUR ---
PT HR UP TO 120 -140'S ON MONITER. EKG RECEIVED PT IN AFIB WITH VR 100-120, MINNIE MUHAMMAD, SHILPA AWARE. RECEIVED ORDERS FROM DR HARTMAN FOR 1V DIGOXIN. PT VENTRICULAR REPSONSE AFTER 1ST DOSE DIGOXIN GIVEN IS 90-110. LUNG S CLEAR AND DIMINISHED O2 SAT RA IS 93%, IS ENCOURAGED , RAISES 2000. WILL CONTINUE TO MONITER AND CARE FOR PT PER PLAN OF CARE
[2018-09-21 12:05] VITALS: BP 105/50
--- NOTE | 2018-09-21 15:04 | NUR ---
VSS REMAINS NSR AFTER CONVERTING FROM AFIB AT 1:20 PM. LUNGS DIMINISHED AND CLEAR, RAISES IS 20 1999, RA SAT IS 94-98%. UP IN HALLS WITH PT AND CR AND TOLERATING WELL AND STEADY ON FEET. PT ABLE TO AMBULATE ON OWN. WILL CONTINUE TO MONITER AND CARE FOR PTPER PLAN OF CARE
[2018-09-21 16:10] VITALS: BP 104/58
[2018-09-21 19:35] VITALS: BP 125/64
[2018-09-22 03:42] VITALS: BP 125/69
--- NOTE | 2018-09-22 05:59 | NUR ---
ASSUMED PT CARE AT 1900 WITH BEDSIDE REPORT COMPLETED. PT IS ALERT AND ORIENTED WITH NO SIGN OF DISTRESS NOTED IN PT. PT IS STABLE POST CABG, ON ROOM AIR. SCHEUDLED MED ADMINISTERED TO PT. ASSESSMENT DONE AND CHARTED. VITAL SIGNS STABLE, HEART RHYTHM STABLE ON THE MONITOR. DENIES ANY FURTHER NEEDS AT THIS TIME.
[2018-09-22 07:50] VITALS: BP 115/55
--- NOTE | 2018-09-22 08:28 | EKG ---
[address] [address] ELECTROCARDIOGRAM REPORT Name: DON FELIX Room #: 206-P ADM IN M.R.#: [id number] Admission: 09/14/18 Attend Phys: Franklin Hampton MD Discharge: Date of : 59 Report #: [id number] THIS REPORT FOR: //name// [facility] Test Date: 2018-09-21 Test Time: 09:38:25 Pat Name: DON FELIX Department: Room: 206 P Gender: M Private Pilot: Avila FERNANDEZ : 1955 Requested By: Franklin Hampton Order Number: [id number] MD: John Beltran Measurements Intervals [place] Rate: 112 P: GA: QRS: 36 QRSD: 86 T: 19 QT: 346 QTc: 473 Interpretive Statements Atrial fibrillation Abnormal R-wave progression, early transition Compared to ECG 09/21/2018 07:32:38 Sinus rhythm no longer present Electronically Signed On 09-22-2018 8:28:39 SHIRT IRONER SUPERVISOR by John Beltran [email or web address] <ELECTRONICALLY SIGNED> By: John Beltran MD, [facility] 09/22/18 0828 7 7 John Beltran MD, FACC /EPI
--- NOTE | 2018-09-22 10:03 | NUR ---
Follow up for diet education needs on pt s/p CABG. Pt states aware of what he should be doing, not following as close as he should. Stated stopped taking his statin prior admit, just didn't feel good. Provided encouragement to make lifestyle changes. Pt denied questions regarding diet. Has cardiac folder with nutrition education materials. Eager to be discharged.
[2018-09-22] MEDS ORDERED: ATORVASTATIN CA40 MG PO (10:33)
[2018-09-22] MEDS ORDERED: LANOXIN 0.250.25 M1 PO (10:33)
[2018-09-22] MEDS ORDERED: NORCO 5-325 TA1 EACH PO (10:33)
[2018-09-22] MEDS ORDERED: FERREX 150 PLU1 EAC1 PO (10:33)
[2018-09-22] MEDS ORDERED: LOPRESSOR25 PO (10:33)
[2018-09-22] MEDS ORDERED: PACERONE 200 M200 M1 PO (10:33)
[2018-09-22] MEDS ORDERED: LOW DOSE ASPIRI81 M1 PO (10:33)
[2018-09-22 11:40] VITALS: BP 118/67
[2018-09-22 14:37] VITALS: BP 118/67
[2018-09-22 15:10] VITALS: BP 118/67
--- NOTE | 2018-09-22 15:13 | NUR ---
ASSUMED CARE OF PT AT SHIFT CHANGE. ASSESSMENTS CHARTED. MEDS GIVEN PER OCT. PT AOX4, VSS, C/O BACK PAIN- MANAGED WITH PO PAIN MEDS. DENIES CHEST PAIN. O2 SATS WNL ON ROOM AIR. NO S/SX OF CARDIAC OR RESP DISTRESS NOTED. NSR ON MONITOR. URINE OUTPUT ADEQUATE, PT HAD BM THIS SHIFT. DISCHARGE ORDERS ACKNOWLEDGED AND IMPLEMENTED. DC PAPER WORK DISCUSSED WITH PT AND SPOUSE, COMMUNICATES UNDERSTANDING. TELE OFF, IV TAKEN OUT, PT LEFT UNIT AT APPROX 1500 WITH BELONGINGS AND SPOUSE BY WHEELCHAIR.
--- NOTE | 2018-09-22 16:01 | EKG ---
[address] [place] [address] ELECTROCARDIOGRAM REPORT Name: DON EFLIX Room #: 206-P DIS IN M.R.#: [id number] Admission: 09/14/18 Attend Phys: Franklin Hampton MD Discharge: 09/22/18 Date of : 59 Report #: [id number] THIS REPORT FOR: //name// [facility] Test Date: 2018-09-22 Test Time: 06:55:48 Pat Name: DON FELIX Department: Room: 206 P Gender: M Textile Machinery Instructor: JUANI : 1955 Requested By: Torres Bradford Order Number: [id number] MD: John Beltran Measurements Intervals [place] Rate: 68 P: 45 SD: 198 QRS: 43 QRSD: 91 T: 49 QT: 415 QTc: 442 Interpretive Statements Sinus rhythm Anteroseptal infarct, age indeterminate Compared to ECG 09/21/2018 07:32:38 Sinus rhythm has replaced atrial fibrillation Anterior Q waves are now present Electronically Signed On 09-22-2018 16:01:06 APPLIANCE TECHNICIAN by John Beltran [email or web address] <ELECTRONICALLY SIGNED> By: John Beltran MD, [facility] 09/22/18 1601 0655 0655 John Beltran MD, [facility] /EPI
== END 2018-09-22 14:58 | disposition home or self-care (01) | DRG 233 ==
LOC: ER 11:16 → 3W 13:22 → ICU 13:22 → 2N 13:22 → EROBS 13:22 → 3W 14:22 → 2N 09-15 10:17 → TBA 09-16 08:15 → ICU 09-16 14:44 → 2N 09-21 01:01
PROVIDERS: Internal Medicine Cardiovascular Disease; Nurse Practitioner; Surgery Vascular Surgery; ADMIT Hospitalist
DX: I25.110 Atherosclerotic heart disease of native coronary artery with unstable angina pectoris (principal); J96.01 Acute respiratory failure with hypoxia; M19.90 Unspecified osteoarthritis, unspecified site; E78.5 Hyperlipidemia, unspecified; R73.03 Prediabetes; I95.9 Hypotension, unspecified; D64.9 Anemia, unspecified; I12.9 Hypertensive chronic kidney disease with stage 1 through stage 4 chronic kidney disease, or unspecified chronic kidney disease; N18.9 Chronic kidney disease, unspecified; I48.91 Unspecified atrial fibrillation; Z95.5 Presence of coronary angioplasty implant and graft; Z82.49 Family history of ischemic heart disease and other diseases of the circulatory system; Z87.891 Personal history of nicotine dependence; Z79.82 Long term (current) use of aspirin; Z79.899 Other long term (current) drug therapy; Z88.8 Allergy status to other drugs, medicaments and biological substances; Z79.1 Long term (current) use of non-steroidal anti-inflammatories (NSAID)
CPT/HCPCS: 10078; 10081; 10879; 47000; 47001; 47002; 47297; 48888; 50010; 50249; 50409; 50456; 50498; 50668; 51301; 52131; 52314; 53327; 53358; 54118; 56524; 56525; 56526; 56527; 56528; 56531; 56534; 56668; 56760; 57093; 62110; 62950; 65003; 65020; 65047; 65120; 83006

== ENCOUNTER 2018-10-03 17:31 | Emergency (ER) | payer OTHER ==
[~2018-10-03] VITALS: Ht 180.3 cm; Wt 115.7 kg
[~2018-10-03 17:31] MED LIST changes: +AMLODIPINE BESY10 MG PO; +ATORVASTATIN CA40 MG PO; +FERREX 150 PLU1 EAC1 PO; +LANOXIN 0.250.25 M1 PO; +LOPRESSOR25 PO; +LOW DOSE ASPIRI81 M1 PO; +MICARDIS 80 MG80 MG PO; +NORCO 5-325 TA1 EACH PO; +NORVASC5 MG PO; +PACERONE 200 M200 M1 PO; +ZYRTEC10 M4 PO
[2018-10-03 18:13] LABS: ABSOLUTE NEUTROPHILS 6.6 thou/uL (1.4-8.2); BASOPHILS 0.8 % (0.0-2.0); EOSINOPHILS 1.8 % (0.0-3.0); HEMATOCRIT 31.9 % (42.0-52.0); HEMOGLOBIN 11.1 gm/dL (14.0-18.0); LYMPHOCYTES 14.3 % (24.0-44.0); MCH 30.1 pg (26.0-34.0); MCHC 34.8 g/dL (28.0-37.0); MCV 86.3 fL (80.0-100.0); MONOCYTES 11.7 % (1.0-8.0); PLATELET COUNT 802 thou/uL (150-400); POLYS 71.4 % (36.0-66.0); RDW 13.2 % (10.5-14.5); WBC 9.2 thou/uL (4.0-11.0)
[2018-10-03 18:45] LABS: CALCIUM 9.1 mg/dL (8.5-10.1); CREATININE 1.1 mg/dL (0.7-1.3)
[2018-10-03 18:53] LABS: ALBUMIN 2.9 g/dL (3.4-5.0); TOTAL BILIRUBIN 0.4 mg/dL (<0.1-1.0); TOTAL PROTEIN 7.6 g/dL (6.4-8.2); TROPONIN-I 0.1 ng/mL (<0.06)
[2018-10-03 19:07] LABS: URIC ACID* 4.1 mg/dL (2.6-7.2)
[2018-10-03] MEDS ORDERED: MEDROLDOSEPACK PO (20:59)
[2018-10-03 21:20] VITALS: BP 134/66
--- NOTE | 2018-10-05 08:27 | EKG ---
[address] [place] [address] ELECTROCARDIOGRAM REPORT Name: DON FELIX Room #: DEP LISETH Spicer#: [id number] Admission: 10/03/18 Attend Phys: Discharge: 10/03/18 Date of : 59 Report #: [id number] THIS REPORT FOR: //name// [facility] Test Date: 2018-10-03 Test Time: 18:40:34 Pat Name: DON FELIX Department: Room: Gender: Concert Singer: WG : 1955 Requested By: Shannan Galloway Order Number: [id number] MD: John Beltran Measurements Intervals [place] Rate: 74 P: 16 RI: 222 QRS: 40 QRSD: 109 T: 13 QT: 377 QTc: 419 Interpretive Statements Sinus rhythm Prolonged RI interval Nonspecific ST and T wave abnormality Compared to ECG 09/22/2018 06:55:48 Myocardial infarct finding no longer present Electronically Signed On 10-05-2018 8:27:44 ASSISTANT TO THE DEAN by John Beltran [email or web address] <ELECTRONICALLY SIGNED> By: John Beltran MD, [facility] 10/05/18 0827 1840 39 John Beltran MD, FACC /EPI
== END 2018-10-03 21:20 | disposition home or self-care (01) ==
LOC: ER 17:31
PROVIDERS: Physician Assistant
DX: M79.89 Other specified soft tissue disorders (principal); M25.571 Pain in right ankle and joints of right foot; M25.572 Pain in left ankle and joints of left foot; I10 Essential (primary) hypertension; E78.00 Pure hypercholesterolemia, unspecified; M19.90 Unspecified osteoarthritis, unspecified site; Z87.891 Personal history of nicotine dependence; Z88.8 Allergy status to other drugs, medicaments and biological substances; Z95.5 Presence of coronary angioplasty implant and graft; Z98.890 Other specified postprocedural states; Z79.899 Other long term (current) drug therapy

== ENCOUNTER 2020-03-28 09:13 | Inpatient (IN) | payer OTHER ==
[~2020-03-28] VITALS: Ht 180.3 cm; Wt 117.9 kg
[~2020-03-28 09:13] MED LIST changes: +MEDROLDOSEPACK PO
[2020-03-28 09:15] VITALS: BP 139/79
[2020-03-28] MEDS ORDERED: TELMISARTAN80 MG PO (09:32)
[2020-03-28] MEDS ORDERED: NORVASC5 MG PO (09:32)
[2020-03-28 09:40] LABS: ABSOLUTE NEUTROPHILS 5.7 thou/uL (1.4-8.2); BASOPHILS 1.3 % (0.0-2.0); EOSINOPHILS 5.2 % (0.0-3.0); HEMATOCRIT 40.4 % (42.0-52.0); HEMOGLOBIN 13.8 gm/dL (14.0-18.0); LYMPHOCYTES 18.1 % (24.0-44.0); MCH 30.9 pg (26.0-34.0); MCHC 34.2 g/dL (28.0-37.0); MCV 90.3 fL (80.0-100.0); MONOCYTES 7.7 % (1.0-8.0); PLATELET COUNT 369 thou/uL (150-400); POLYS 67.7 % (36.0-66.0); RBC 4.47 mil/uL (4.50-6.00); RDW 12.5 % (10.5-14.5); WBC 8.5 thou/uL (4.0-11.0)
[2020-03-28 09:43] LABS: ANION GAP 12 mmol/L (7-16); BUN 18 mg/dL (7-18); CALCIUM 8.6 mg/dL (8.5-10.1); CHLORIDE 104 mmol/L (98-107); CO2 24 mmol/L (21-32); CREATININE 1.3 mg/dL (0.7-1.3); GLUCOSE 158 mg/dL (74-106); POTASSIUM 4.6 mmol/L (3.5-5.1); SODIUM 140 mmol/L (136-145)
[2020-03-28 09:53] LABS: ALBUMIN 3.7 g/dL (3.4-5.0); DIRECT BILIRUBIN 0.1 mg/dL (<0.1-0.2); SGOT 32 U/L (15-37); SGPT 52 U/L (30-65); TOTAL BILIRUBIN 0.5 mg/dL (0.2-1.0); TOTAL PROTEIN 7.3 g/dL (6.4-8.2); TROPONIN-I <0.06 ng/mL (<0.06)
[2020-03-28 12:22] VITALS: BP 99/64
--- NOTE | 2020-03-28 12:23 | NUR ---
MEAL TRAY GIVEN
[2020-03-28 12:31] VITALS: BP 101/65
[2020-03-28 12:45] VITALS: BP 123/71
[2020-03-28 20:51] VITALS: BP 120/63
[2020-03-29] VITALS (9 sets, daily range): BP systolic 106–1121; BP diastolic 56–77
[2020-03-29 00:07] LABS: GLYCOHEMOGLOBIN (HGB A1C) 6.5 % (4.8-5.6)
--- NOTE | 2020-03-29 01:47 | NUR ---
PT IS NPO FOR AM SCHEDULED CARDIAC CATH. WILL SHOWER IN THE AM AND CLEAN UP. AND WILL SIGN CONSENT IN AM PT IS SLEEING. HE DENIES ANY CHEST PAIN. VITALS STALBE WAS WATCHING TV THIS EVENING. CALL LIGHT WITHIN REACH. LUNGS ARE CLEAR ON ROOM AIR. WILL CONTINUE TO ASSESS AND MONITOR PER NURSING.
[2020-03-29 05:14] LABS: CALCIUM 8.6 mg/dL (8.5-10.1); CREATININE 1.2 mg/dL (0.7-1.3); MAGNESIUM 1.9 mg/dL (1.8-2.4); POTASSIUM 4.2 mmol/L (3.5-5.1)
[2020-03-29 06:01] LABS: ABSOLUTE NEUTROPHILS 4.1 thou/uL (1.4-8.2); BASOPHILS 1.1 % (0.0-2.0); EOSINOPHILS 6.1 % (0.0-3.0); HEMATOCRIT 38.2 % (42.0-52.0); HEMOGLOBIN 13.2 gm/dL (14.0-18.0); LYMPHOCYTES 26.4 % (24.0-44.0); MCH 31.5 pg (26.0-34.0); MCHC 34.4 g/dL (28.0-37.0); MCV 91.4 fL (80.0-100.0); MONOCYTES 8.5 % (1.0-8.0); PLATELET COUNT 316 thou/uL (150-400); POLYS 57.9 % (36.0-66.0); RBC 4.18 mil/uL (4.50-6.00); RDW 12.9 % (10.5-14.5); WBC 7.1 thou/uL (4.0-11.0)
--- NOTE | 2020-03-29 07:53 | EKG ---
[facility] [place] [address] ELECTROCARDIOGRAM REPORT Name: DON FELIX Room #: 215-P ADM IN M.R.#: [id number] Admission: 03/28/20 Attend Phys: Elgin Marie MD Discharge: Date of : 59 Report #: [id number] THIS REPORT FOR: cc: Leslye Matute NP, Deana Marie NP Lundgren, Craig H. MD [facility] ~ THIS REPORT FOR: //name// [facility] ED Test Date: 2020-03-28 Test Time: 09:17:44 Pat Name: DON FELIX Department: Room: [facility] Gender: M Medical Associate: POONAM : 1955 Requested By: Jessica Madrigal Order Number: [id number] MD: John Beltran Measurements Intervals [place] Rate: 57 P: 33 OR: 214 QRS: 32 QRSD: 108 T: 44 QT: 412 QTc: 401 Interpretive Statements Sinus rhythm Borderline prolonged OR interval Baseline wander in lead(s) V6 Compared to ECG 10/03/2018 18:40:34 ST (T wave) deviation no longer present Electronically Signed On 03-29-2020 7:52:56 CDT by John Beltran [email or web address] <ELECTRONICALLY SIGNED> By: John Beltran MD, [facility] 03/29/20 0752 6 6 John Beltran MD, [facility] /EPI
[2020-03-29] MEDS ORDERED: METOPROLOL SUCC25 M1 PO (17:41)
[2020-03-29] MEDS ORDERED: IMDUR 60 MG TAB60 M1 PO (17:41)
[2020-03-29] MEDS ORDERED: FELODIPINE 5 MG5 M1 PO (17:41)
--- NOTE | 2020-03-29 18:03 | NUR ---
ASSUMED CARE AT CHANGE OF SHIFT. ALERT X4, FROM HOME. ADMITTED FOR UNSTABLE ANGINA. CATH TODAY WITH NO INTERVENTIONS, RIGHT GROIN SIGHT C/D/I WITH POST VS INTERVENTIONS INPLACE AND PT TO KEEP RIGHT LEG IMMOBILIZED UNTIL 1744. DR RODRIGUEZ ROUNDED WITH PT ANF REVIEWED NEW MEDICALT TREATMENTS. PT TO DC HOME WITH SELF CARE. RECIEWED POST CATH SIGH CARE. PT TO FOLLOW UP WITH CARDIOLOGY. REVIEWED MEDICATIONS. IV AND TELE MONITOR REMOVED.
--- NOTE | 2020-03-31 12:34 | CATHLAB ---
[facility] [place] [address] INVASIVE PROCEDURE REPORT Name: DON FELIX Room #: 215-P DIS IN M.R.#: [id number] Admission: 03/28/20 Attend Phys: Elgin Marie MD Discharge: 03/29/20 Date of : 59 Report #: [id number] THIS REPORT FOR: cc: Leslye Matute NP, Deana Marie NP Lammoglia, Francisco J. MD ~ APPROVED REPORT Study performed: 03/29/2020 13:15:01 Patient Details Patient Status: In-Patient Room #: The patient is a 64 year-old male Event Personnel Edil Kidd Computerized Machine Fabric Cutter, Master Davis RN RN, Penelope Darling RTR, PHOTORADIO OPERATOR Scrub, eJn Solis Monitor, Irlanda Mcghee RN laboratory helper Performed Art Access - R femoral artery* Left Heart Cath Coronaries, Bypass Grafts [id number] [facility] [address] Initial Mod Sed Same Phys/QHP Gr5y 321729, supervision of conscious sedation Indication Chest pain Risk Factors Dysplipidemia Obesity, Coronary Artery DiseaseHypertension Procedure Narrative The Right Groin^ was infiltrated with 1% Lidocaine subcutaneous anesthesia. A PINNACLE 6FR Sheath #[id number] sheath was inserted into the RFA 6F^. Coronary angiography was performed using coronary diagnostic catheters. The right coronary system was accessed and visualized with a JR4 catheter. The left coronary system was accessed and visualized with a JL4 catheter. The left ventricle was accessed and visualized with a ANGLE PIG catheter. There was no hematoma. Intraoperative Conscious Sedation Sedation start time: 1908 Case end Time: 1438 Versed 4 mg [facility] [address] [place] [address] INVASIVE PROCEDURE REPORT Name: ELVIRADON Room #: 215-P DIS IN SridharTang#: [id number] Admission: 03/28/20 Attend Phys: Elgin Marie MD Discharge: 03/29/20 Date of : 59 Report #: [id number] Fluoro Time: 4.90 minutes Dose: DAP 8132.70 cGycm2 1286 mGy Contrast Type and Amount: Omnipaque 130 ml Coronary Angiography The patient's coronary anatomy is right dominant. [place] Artery Percent Stenosis Grafts (Complete if Previous CABG=Yes: Percent Stenosis) Left Main: % Prox LAD: 0 % Mid/Distal LAD: % Circumflex: 100 % RCA: % Ramus: %Saphenous vein graft to the left circumflex system identification ring was noted and angiography demonstrates a totally occluded at the ostium graft. Left internal mammary artery to the LAD is identified with excellent antegrade flow and no significant anastomotic lesion. The LAD then is described as below Diagnostic Cath Left Main Normal origin moderate caliber vessel giving rise to left anterior descending and left circumflex coronary arteries. There is mild luminal irregularities until the terminal portion with there appears to be a 75 to 80% lesion LAD Moderate caliber vessel which has a high-grade proximal lesion at the left main. This is a*like lesion involving the circumflex origin. The vessel continues in the anterior interventricular sulcus giving rise to a diagonal branch and then competitive flow is visualized. The mid and distal portion of the LAD fills via left intramammary graft which is patent and demonstrates a small caliber vessel with mild diffuse disease Diagonal 1 Small caliber vessel without high-grade lesions present Circumflex Moderate caliber vessel which has a ostial lesion at the left main origin continues and is 30% irregular eccentric portion in its proximal third can continues on reconstituted terminating is a bifurcating vessel along the lateral aspect of the left ventricle. The anastomotic site of the saphenous vein graft is visualized. There is no retrograde flow into a saphenous vein graft Right Coronary Small to moderate caliber vessel which has a proximal 30 to 40% lesion. Then continues on with irregularities and a prior stenting site is visualized which is patent with only minimal restenosis. Is a small RV marginal branch that arises at the acute margin as the RCA proper continues to the crux of the heart and gives rise to a posterior descending artery posterior wall branch and a terminal right coronary consisting of a smaller posterior lateral wall branch. There is luminal irregularities noted throughout the [facility] [address] [place] [address] INVASIVE PROCEDURE REPORT Name: DON FELIX Room #: 215-P DIS IN M.R.#: [id number] Admission: 03/28/20 Attend Phys: Elgin Marie MD Discharge: 03/29/20 Date of : 59 Report #: [id number] whole region which are less than 50% R PDA Small caliber vessel without significant high-grade lesions present Left Ventriculography Left Ventriculography was not performed. Hemodynamics The aortic pressure is 129/65 mmHg with a mean of 92 mmHg. The left ventricular pressure is 172/-3 mmHg with a mean of mmHg. The left ventricular end diastolic pressure is 20 mmHg. Conclusion 1. Coronary disease severe involving the distal left main ostial LAD and left circumflex with moderate lesions of the right coronary artery 2. Abnormal hemodynamics with slightly elevated left ventricular end-diastolic pressures Recommendations Aggressive Medical Therapy Discussion with the family were carried forth as to the options. T stenting the left main would provide increased antegrade flow and likely occlude the left internal mammary graft. Visualization of the LAD via the ELLE demonstrated no retrograde flow suggesting that the antegrade flow was sufficient to provide adequate diagonal 1 flow. The ostial circumflex with an occluded SVG may be the culprit lesion and stenting would "JL" the LAD proper. In view of this possibility and the patient medical management not being optimized options of stenting versus a trial of medical management was discussed with the patient and family. The patient and agreed to proceed with optimizing nitrates beta-blockade and if does not control symptomatology then return for stenting of the left main circumflex juncture. <ELECTRONICALLY SIGNED> By: Edli Kidd MD 03/31/20 1234 1234 1234 Edil Kidd MD /INF
== END 2020-03-29 18:56 | disposition home or self-care (01) | DRG 287 ==
LOC: ER 09:13 → 2N 10:55 → EROBS 10:55 → 2N 13:03
PROVIDERS: Emergency Medicine; Nurse Practitioner; ADMIT Internal Medicine; ATTEND Internal Medicine
PROC: 4A023N7 Measurement of Cardiac Sampling and Pressure, Left Heart, Percutaneous Approach (ICD-10-PCS; principal; 2020-03-29)
PROC: B2111ZZ Fluoroscopy of Multiple Coronary Arteries using Low Osmolar Contrast (ICD-10-PCS; principal; 2020-03-29)
PROC: B2181ZZ Fluoroscopy of Left Internal Mammary Bypass Graft using Low Osmolar Contrast (ICD-10-PCS; principal; 2020-03-29)
PROC: B2121ZZ Fluoroscopy of Single Coronary Artery Bypass Graft using Low Osmolar Contrast (ICD-10-PCS; principal; 2020-03-29)
DX: I25.700 Atherosclerosis of coronary artery bypass graft(s), unspecified, with unstable angina pectoris (principal); I10 Essential (primary) hypertension; G89.29 Other chronic pain; M54.9 Dorsalgia, unspecified; E66.01 Morbid (severe) obesity due to excess calories; E78.00 Pure hypercholesterolemia, unspecified; E78.5 Hyperlipidemia, unspecified; M19.90 Unspecified osteoarthritis, unspecified site; Z95.1 Presence of aortocoronary bypass graft; Z95.5 Presence of coronary angioplasty implant and graft; Z79.899 Other long term (current) drug therapy; I25.2 Old myocardial infarction; Z79.82 Long term (current) use of aspirin; Z88.8 Allergy status to other drugs, medicaments and biological substances; Z87.891 Personal history of nicotine dependence; Z68.36 Body mass index [BMI] 36.0-36.9, adult
CPT/HCPCS: 10081

== ENCOUNTER → 2020-05-04 | Outpatient (CLI) | payer OTHER ==
[~2020-05-04] MED LIST changes: +FELODIPINE 5 MG5 M1 PO; +IMDUR 60 MG TAB60 M1 PO; +METOPROLOL SUCC25 M1 PO; +TELMISARTAN80 MG PO
== END ==
LOC: SJCVCIMAG 07:27
PROVIDERS: ATTEND Internal Medicine
DX: I25.10 Atherosclerotic heart disease of native coronary artery without angina pectoris (principal); I10 Essential (primary) hypertension